=== PATIENT | male | born 1935 | race Caucasian/White ===

== ENCOUNTER → 2022-07-01 | Outpatient (CLI) | payer SELFPAY ==
[2022-07-01 09:16] LABS: BASOPHILS ABSOLUTE AUTO 0.02 K/mm3 (0.00-0.23); BASOPHILS PERCENT AUTO 0 % (0-2); EOSINOPHILS ABSOLUTE AUTO 0.04 K/mm3 (0.00-0.68); EOSINOPHILS PERCENT AUTO 1 % (0-6); Hematocrit 39.4 % (37.0-53.0); Hemoglobin 13.2 g/dL (13.5-17.5); IMMATURE GRAN ABSOLUTE AUTO 0.03 K/mm3 (0.00-0.10); IMMATURE GRAN PERCENT AUTO 1 % (0-1); LYMPHOCYTES ABSOLUTE AUTO 1.26 K/mm3 (0.84-5.20); LYMPHOCYTES PERCENT AUTO 21 % (21-46); MONOCYTES ABSOLUTE AUTO 0.56 K/mm3 (0.16-1.47); MONOCYTES PERCENT AUTO 9 % (4-13); Mean Corpuscular HGB 32.8 pg (26.0-34.0); Mean Corpuscular HGB Conc 33.5 g/dL (31.5-36.5); Mean Corpuscular Volume 98 fL (80-100); Mean Platelet Volume 11.7 fL (9.1-12.4); NEUTROPHILS ABSOLUTE AUTO 4.14 K/mm3 (1.96-9.15); NEUTROPHILS PERCENT AUTO 68 % (41-73); Platelet Count 142 K/mm3 (150-400); RDW Coefficient Variation 14.9 % (11.7-14.2); RDW Standard Deviation 54.2 fL (35.1-46.3); Red Blood Cell Count 4.02 M/mm3 (4.30-5.90); White Blood Cell Count 6.05 K/mm3 (4.00-11.30)
[2022-07-01 09:38] LABS: Bun/Creatinine Ratio 32.7 (12.0-20.0); Calcium, Blood 8.9 mg/dL (8.5-10.1); Creatinine, Blood 1.07 mg/dL (0.60-1.20); Potassium, Blood 4.9 mmol/L (3.5-5.5)
== END | disposition home or self-care (01) ==
LOC: LAB 09:04 → LAB SHORT 09:04
PROVIDERS: Physician Assistant Surgical
DX: R06.00 Dyspnea, unspecified (principal)
CPT/HCPCS: 80048; 83880; 84484; 85025

== ENCOUNTER → 2022-07-27 | Outpatient (CLI) | payer MEDICARE ==
[2022-07-27 08:54] LABS: BASOPHILS ABSOLUTE AUTO 0.03 K/mm3 (0.00-0.23); BASOPHILS PERCENT AUTO 1 % (0-2); EOSINOPHILS ABSOLUTE AUTO 0.05 K/mm3 (0.00-0.68); EOSINOPHILS PERCENT AUTO 1 % (0-6); Hematocrit 41.3 % (37.0-53.0); Hemoglobin 13.8 g/dL (13.5-17.5); IMMATURE GRAN ABSOLUTE AUTO 0.02 K/mm3 (0.00-0.10); IMMATURE GRAN PERCENT AUTO 0 % (0-1); LYMPHOCYTES ABSOLUTE AUTO 1.64 K/mm3 (0.84-5.20); LYMPHOCYTES PERCENT AUTO 27 % (21-46); MONOCYTES ABSOLUTE AUTO 0.64 K/mm3 (0.16-1.47); MONOCYTES PERCENT AUTO 11 % (4-13); Mean Corpuscular HGB 32.5 pg (26.0-34.0); Mean Corpuscular HGB Conc 33.4 g/dL (31.5-36.5); Mean Corpuscular Volume 97 fL (80-100); Mean Platelet Volume 11.6 fL (9.1-12.4); NEUTROPHILS ABSOLUTE AUTO 3.61 K/mm3 (1.96-9.15); NEUTROPHILS PERCENT AUTO 60 % (41-73); Platelet Count 145 K/mm3 (150-400); RDW Coefficient Variation 14.1 % (11.7-14.2); RDW Standard Deviation 50.5 fL (35.1-46.3); Red Blood Cell Count 4.25 M/mm3 (4.30-5.90); White Blood Cell Count 5.99 K/mm3 (4.00-11.30)
[2022-07-27 09:05] LABS: Albumin, Blood 3.9 g/dL (3.4-5.0); Albumin/Globulin Ratio 1.3 (0.8-1.8); Bilirubin, Total 1.3 mg/dL (0.1-1.0); Calcium, Blood 9.2 mg/dL (8.5-10.1); Creatinine, Blood 1.32 mg/dL (0.60-1.20); Globulin, Blood 2.9 g/dL (2.2-4.0); Potassium, Blood 4.7 mmol/L (3.5-5.5); Total Protein, Blood 6.8 g/dL (6.4-8.2)
== END | disposition home or self-care (01) ==
LOC: LAB 08:49 → LAB SHORT 08:49
PROVIDERS: Physician Assistant
DX: R06.00 Dyspnea, unspecified (principal)
CPT/HCPCS: 80053; 83880; 84484; 85025

== ENCOUNTER → 2022-09-29 | Outpatient (CLI) | payer MEDICARE ==
[~2022-09-29] MED LIST: MECL25 PO; ONDA4ODT MM
[2022-09-29 11:09] LABS: BASOPHILS ABSOLUTE AUTO 0.04 K/mm3 (0.00-0.23); BASOPHILS PERCENT AUTO 1 % (0-2); EOSINOPHILS ABSOLUTE AUTO 0.05 K/mm3 (0.00-0.68); EOSINOPHILS PERCENT AUTO 1 % (0-6); Hematocrit 44.6 % (37.0-53.0); Hemoglobin 14.7 g/dL (13.5-17.5); IMMATURE GRAN ABSOLUTE AUTO 0.03 K/mm3 (0.00-0.10); IMMATURE GRAN PERCENT AUTO 0 % (0-1); LYMPHOCYTES ABSOLUTE AUTO 1.45 K/mm3 (0.84-5.20); LYMPHOCYTES PERCENT AUTO 20 % (21-46); MONOCYTES ABSOLUTE AUTO 0.64 K/mm3 (0.16-1.47); MONOCYTES PERCENT AUTO 9 % (4-13); Mean Corpuscular HGB 32.8 pg (26.0-34.0); Mean Corpuscular Volume 100 fL (80-100); Mean Platelet Volume 12.1 fL (9.1-12.4); NEUTROPHILS ABSOLUTE AUTO 4.93 K/mm3 (1.96-9.15); NEUTROPHILS PERCENT AUTO 69 % (41-73); Platelet Count 145 K/mm3 (150-400); RDW Coefficient Variation 15.9 % (11.7-14.2); Red Blood Cell Count 4.48 M/mm3 (4.30-5.90); White Blood Cell Count 7.14 K/mm3 (4.00-11.30)
[2022-09-29 11:21] LABS: Bun/Creatinine Ratio 29.6 (12.0-20.0); Calcium, Blood 9.6 mg/dL (8.5-10.1); Creatinine, Blood 1.35 mg/dL (0.60-1.20)
== END | disposition home or self-care (01) ==
LOC: LAB SHORT 10:56 → LAB 10:56
PROVIDERS: Physician Assistant Surgical
DX: R06.00 Dyspnea, unspecified (principal); R53.83 Other fatigue
CPT/HCPCS: 80048; 83880; 84484; 85025

== ENCOUNTER 2022-10-17 15:25 | Inpatient (IN) | payer MEDICARE ==
[~2022-10-17] VITALS: Ht 182.9 cm; Wt 81.0 kg
[2022-10-17 16:15] LABS: BASOPHILS ABSOLUTE AUTO 0.02 K/mm3 (0.00-0.23); BASOPHILS PERCENT AUTO 0 % (0-2); EOSINOPHILS ABSOLUTE AUTO 0.05 K/mm3 (0.00-0.68); EOSINOPHILS PERCENT AUTO 1 % (0-6); Hematocrit 49.3 % (37.0-53.0); Hemoglobin 16.3 g/dL (13.5-17.5); IMMATURE GRAN ABSOLUTE AUTO 0.06 K/mm3 (0.00-0.10); IMMATURE GRAN PERCENT AUTO 1 % (0-1); LYMPHOCYTES ABSOLUTE AUTO 1.56 K/mm3 (0.84-5.20); LYMPHOCYTES PERCENT AUTO 15 % (21-46); MONOCYTES PERCENT AUTO 10 % (4-13); Mean Corpuscular HGB 33.4 pg (26.0-34.0); Mean Corpuscular HGB Conc 33.1 g/dL (31.5-36.5); Mean Corpuscular Volume 101 fL (80-100); Mean Platelet Volume 11.8 fL (9.1-12.4); NEUTROPHILS ABSOLUTE AUTO 7.48 K/mm3 (1.96-9.15); NEUTROPHILS PERCENT AUTO 74 % (41-73); Platelet Count 107 K/mm3 (150-400); RDW Coefficient Variation 18.4 % (11.7-14.2); Red Blood Cell Count 4.88 M/mm3 (4.30-5.90); White Blood Cell Count 10.17 K/mm3 (4.00-11.30)
[2022-10-17 16:28] LABS: Albumin, Blood 3.8 g/dL (3.4-5.0); Albumin/Globulin Ratio 1.1 (0.8-1.8); Bilirubin, Total 3.9 mg/dL (0.1-1.0); Bun/Creatinine Ratio 39.1 (12.0-20.0); Calcium, Blood 9.8 mg/dL (8.5-10.1); Creatinine, Blood 1.79 mg/dL (0.60-1.20); Globulin, Blood 3.5 g/dL (2.2-4.0); Potassium, Blood 5.7 mmol/L (3.5-5.5); Total Protein, Blood 7.3 g/dL (6.4-8.2)
[2022-10-17 17:08] LABS: PCO2 Arterial 21.2 mmHg (35-45); PO2 Arterial 154 mmHg (80-100); pH Blood Arterial 7.46 (7.35-7.45)
[2022-10-17] MEDS ORDERED: POTA10T PO (17:48)
[2022-10-17] MEDS ORDERED: SPIR25 PO (17:48)
[2022-10-17] MEDS ORDERED: FURO40 PO (17:48)
[2022-10-17] MEDS ORDERED: CENTRUM SILVER1 EAC2 PO (17:49)
[2022-10-17] MEDS ORDERED: CALCIUM CIT 311 EAC7 PO (17:49)
[2022-10-17] MEDS ORDERED: GENICIN500 M1 PO (17:50)
[2022-10-17] MEDS ORDERED: VITAMIN E180 MG PO (17:51)
[2022-10-17] MEDS ORDERED: B-100 COMPLEX100 MG PO (17:51)
[2022-10-17 20:06] LABS: Calcium, Blood 9.2 mg/dL (8.5-10.1); Creatinine, Blood 1.87 mg/dL (0.60-1.20); Potassium, Blood 4.9 mmol/L (3.5-5.5)
--- NOTE | 2022-10-17 20:39 | NUR ---
RESIDENT NOTIFIED OF CRITICAL LACTIC OF 3.3, PREVIOUS DRAW WAS 3.0. PT DID NOT RECIEVE ABX OR FLUID IN ER. ORDERED A REPEAT LACTIC, BNP, & BMP @ 0000. SHE STATED THAT SHE WILL COME UP AND ASSESS THE PT BEFORE GIVING ANY OTHER ORDERS. CHARGE NURSE NOTIFIED, PT REMAIN A&O X4, SPO2 >93% ON 2L O2 VIA NC, CALL LIGHT IN REACH, WC.
[2022-10-18 03:26] LABS: BASOPHILS ABSOLUTE AUTO 0.01 K/mm3 (0.00-0.23); BASOPHILS PERCENT AUTO 0 % (0-2); EOSINOPHILS ABSOLUTE AUTO 0.02 K/mm3 (0.00-0.68); EOSINOPHILS PERCENT AUTO 0 % (0-6); Hematocrit 40.9 % (37.0-53.0); Hemoglobin 14.1 g/dL (13.5-17.5); IMMATURE GRAN ABSOLUTE AUTO 0.05 K/mm3 (0.00-0.10); IMMATURE GRAN PERCENT AUTO 1 % (0-1); LYMPHOCYTES PERCENT AUTO 14 % (21-46); MONOCYTES ABSOLUTE AUTO 0.77 K/mm3 (0.16-1.47); MONOCYTES PERCENT AUTO 10 % (4-13); Mean Corpuscular HGB 33.6 pg (26.0-34.0); Mean Corpuscular HGB Conc 34.5 g/dL (31.5-36.5); Mean Corpuscular Volume 97 fL (80-100); Mean Platelet Volume 11.7 fL (9.1-12.4); NEUTROPHILS ABSOLUTE AUTO 6.11 K/mm3 (1.96-9.15); NEUTROPHILS PERCENT AUTO 76 % (41-73); NRBC ABSOLUTE 0.02 K/mm3 (0.00-0.02); NRBC Auto 0.2 /100 WBC (0.0-0.2); Platelet Count 93 K/mm3 (150-400); RDW Coefficient Variation 17.8 % (11.7-14.2); RDW Standard Deviation 61.2 fL (35.1-46.3); White Blood Cell Count 8.06 K/mm3 (4.00-11.30)
[2022-10-18 03:54] LABS: Albumin, Blood 2.9 g/dL (3.4-5.0); Albumin/Globulin Ratio 1.1 (0.8-1.8); Bilirubin, Total 2.8 mg/dL (0.1-1.0); Calcium, Blood 8.7 mg/dL (8.5-10.1); Creatinine, Blood 1.95 mg/dL (0.60-1.20); Globulin, Blood 2.7 g/dL (2.2-4.0); Magnesium, Blood 2.8 mg/dL (1.6-2.4); Total Protein, Blood 5.6 g/dL (6.4-8.2)
--- NOTE | 2022-10-18 05:35 | NUR ---
SHIFT SUMMARY PT REMAINS A&O X4, SBA, SPO2 100% ON 2L O2, DYSPNEA W/EXERTION & INTERMIT SOB, LUNGS REMAIN CLEAR/DIM IN BILATERAL BASES, HR PACED 60'S, VOIDING WNL, PT DID USE THE BATHROOM WITHOUT MEASURING HIS URINE A FEW TIMES, HE WAS EDUCATED ON STRICT I&O AND CALLING FOR ASSISTANCE, BP HYPOTENSIVE THIS AM, PT ASYMPTOMATIC, IS AWARE & HAS BEEN INFORMED OF PT STATUS THROUGH THE NIGHT WELL TOWER DRAGLINE OPERATOR, LACTIC THIS AM WAS 1.8. PT C/O PAIN IN THE LEFT FLANK/RIB AREA, HE WAS GIVEN PO TYLENOL & A HEATING PAD, PT STATES "IT HELPED A LITTLE". WCTM & REPORT TO ONCOMING RN, CALL LIGHT IN REACH.
--- NOTE | 2022-10-18 07:30 | NUR ---
AM ASSESSMENT: Pt dozing in bed. Wakes to verbal stimulus. Oriented x4. HR reg with faint murmur noted. Tele shows paced rhythm. LS diminished in bases. BT positive. Pulses palp. +4 pitting edema to BLE. Pt states that the swelling started about 4 days ago, but that it is slightly better today then yesterday. Pt denies dizziness or lightheadedness. BP soft. Denies needs. Call light in reach. Will monitor.
--- NOTE | 2022-10-18 18:40 | NUR ---
SHIFT SUMMARY: Pt sitting up at edge of bed. Denies CP, SOB or dizziness at this time. Pt BP has remained soft throughout the shift with SBP remaining in the low 90's. MAP's have remained in the 70's. HR has remained paced in the 60's throughout shift. Echo and abd ultrasound were completed this am. Records request sent for old echo reports to [facility] in [place]. No other changes this shift. Will report to night RN.
[2022-10-19 04:01] LABS: Albumin, Blood 2.9 g/dL (3.4-5.0); Anion Gap 8 mmol/L (6-16); Blood Urea Nitrogen 78 mg/dL (8-24); Bun/Creatinine Ratio 42.2 (12.0-20.0); CO2, Blood 24 mmol/L (21-32); Calcium, Blood 8.4 mg/dL (8.5-10.1); Chloride, Blood 101 mmol/L (98-108); Creatinine, Blood 1.85 mg/dL (0.60-1.20); Glomerular Filtration Rate 35 (60-); Glucose, Blood 111 mg/dL (70-99); Potassium, Blood 3.9 mmol/L (3.5-5.5); Sodium, Blood 133 mmol/L (136-145)
--- NOTE | 2022-10-19 05:05 | NUR ---
SHIFT SUMMARY PT A&Ox4, CALLS AND COMMUNICATES NEEDS APPROPRIATELY. VSS, BP STABLE, 100% PACED 60's, SpO2> 92% RA. PT WEARS 2L VIA NC FOR COMFORT AT TIMES. DENIES SOB/CP/PRESSURE. PT IND IN ROOM, USES URINAL APPROPRIATELY AT BEDSIDE, NO BM THIS SHIFT. NO OTHER EVENTS, WILL REPORT TO ONCOMING RN.
[2022-10-19 07:00] LABS: BASOPHILS ABSOLUTE AUTO 0.01 K/mm3 (0.00-0.23); BASOPHILS PERCENT AUTO 0 % (0-2); EOSINOPHILS ABSOLUTE AUTO 0.09 K/mm3 (0.00-0.68); EOSINOPHILS PERCENT AUTO 1 % (0-6); Hematocrit 39.7 % (37.0-53.0); Hemoglobin 13.5 g/dL (13.5-17.5); IMMATURE GRAN ABSOLUTE AUTO 0.03 K/mm3 (0.00-0.10); IMMATURE GRAN PERCENT AUTO 0 % (0-1); LYMPHOCYTES ABSOLUTE AUTO 1.24 K/mm3 (0.84-5.20); LYMPHOCYTES PERCENT AUTO 18 % (21-46); MONOCYTES ABSOLUTE AUTO 0.81 K/mm3 (0.16-1.47); MONOCYTES PERCENT AUTO 12 % (4-13); Mean Corpuscular HGB 33.3 pg (26.0-34.0); Mean Corpuscular Volume 98 fL (80-100); Mean Platelet Volume 12.6 fL (9.1-12.4); NEUTROPHILS ABSOLUTE AUTO 4.69 K/mm3 (1.96-9.15); NEUTROPHILS PERCENT AUTO 68 % (41-73); Platelet Count 82 K/mm3 (150-400); RDW Coefficient Variation 17.4 % (11.7-14.2); RDW Standard Deviation 61.3 fL (35.1-46.3); Red Blood Cell Count 4.06 M/mm3 (4.30-5.90); White Blood Cell Count 6.87 K/mm3 (4.00-11.30)
[2022-10-19 07:07] LABS: Albumin, Blood 2.9 g/dL (3.4-5.0); Albumin/Globulin Ratio 1.2 (0.8-1.8); Bilirubin, Total 2.6 mg/dL (0.1-1.0); Bun/Creatinine Ratio 43.9 (12.0-20.0); Calcium, Blood 8.5 mg/dL (8.5-10.1); Creatinine, Blood 1.8 mg/dL (0.60-1.20); Globulin, Blood 2.4 g/dL (2.2-4.0); Potassium, Blood 3.9 mmol/L (3.5-5.5); Total Protein, Blood 5.3 g/dL (6.4-8.2)
--- NOTE | 2022-10-19 10:25 | NUR ---
Pt states today that his breathing feels better. STates that he did NOT wake up frequently in a panic due to dyspnea last night, which he was doing before. Hypotension noted; pt denies any symptoms associated with that. Paced rhythm with frequent PVCs noted by telemetry monitoring. Pt also had a singe 5 beat run of V Tach this morning. Pacemaker was interrogated and report was requested faxed to PCU.
--- NOTE | 2022-10-19 17:40 | NUR ---
Sitting on side of bed, eating dinner at this time. No complaints of discomfort nor pain. No voiced needs.
--- NOTE | 2022-10-20 05:58 | NUR ---
SHIFT SUMMARY PT A&Ox4, CALLS AND COMMUNICATES NEEDS APPROPRIATELY. VSS, BP STABLE, 100% PACED 60-70's, SpO2> 92% RA. DENIES SOB/CP/PRESSURE. PT IND IN ROOM, USES URINAL APPROPRIATELY AT BEDSIDE, NO BM THIS SHIFT. NO OTHER EVENTS, WILL REPORT TO ONCOMING RN.
[2022-10-20 07:57] LABS: BASOPHILS ABSOLUTE AUTO 0.01 K/mm3 (0.00-0.23); BASOPHILS PERCENT AUTO 0 % (0-2); EOSINOPHILS ABSOLUTE AUTO 0.23 K/mm3 (0.00-0.68); EOSINOPHILS PERCENT AUTO 4 % (0-6); Hematocrit 38.2 % (37.0-53.0); Hemoglobin 13.1 g/dL (13.5-17.5); IMMATURE GRAN ABSOLUTE AUTO 0.02 K/mm3 (0.00-0.10); IMMATURE GRAN PERCENT AUTO 0 % (0-1); LYMPHOCYTES ABSOLUTE AUTO 0.92 K/mm3 (0.84-5.20); LYMPHOCYTES PERCENT AUTO 16 % (21-46); MONOCYTES ABSOLUTE AUTO 0.67 K/mm3 (0.16-1.47); MONOCYTES PERCENT AUTO 12 % (4-13); Mean Corpuscular HGB 33.4 pg (26.0-34.0); Mean Corpuscular HGB Conc 34.3 g/dL (31.5-36.5); Mean Corpuscular Volume 97 fL (80-100); Mean Platelet Volume 11.6 fL (9.1-12.4); NEUTROPHILS ABSOLUTE AUTO 3.99 K/mm3 (1.96-9.15); NEUTROPHILS PERCENT AUTO 68 % (41-73); Platelet Count 79 K/mm3 (150-400); RDW Coefficient Variation 17.3 % (11.7-14.2); RDW Standard Deviation 60.8 fL (35.1-46.3); Red Blood Cell Count 3.92 M/mm3 (4.30-5.90); White Blood Cell Count 5.84 K/mm3 (4.00-11.30)
--- NOTE | 2022-10-20 08:06 | NUR ---
Pt states that his breathing feels fine this morning. Lung sounds are clear to auscultation. Paced rhthym 61 bpm at rest. Still has some pitting edema of the legs, right greater than left. Ankles are swollen. JOLIE hose are on. Dr. Allen here to see the patient.
[2022-10-20 08:13] LABS: Bun/Creatinine Ratio 43.9 (12.0-20.0); Calcium, Blood 8.2 mg/dL (8.5-10.1); Creatinine, Blood 1.55 mg/dL (0.60-1.20); Magnesium, Blood 2.5 mg/dL (1.6-2.4); Potassium, Blood 3.2 mmol/L (3.5-5.5)
--- NOTE | 2022-10-20 14:31 | NUR ---
Pt has been eating well, urinating independently in the bathroom. He has been up in the room ambulating independently and states that he has been feeling fine. States his breathing feels much better today. Took a shower after lunch. Noted new order for medical status with telemetry.
--- NOTE | 2022-10-20 15:00 | NUR ---
RN RECEIVED REPORT FROM TIFFANIE DRUG ABUSE PROGRAM COORDINATOR ABOUT PT TRANSFERRING TO MEDICAL FLOOR. PT ARRIVED ON MEDICAL FLOOR VIA PCU WHEELCHAIR AND WALKED WITH SBA TO MEDICAL BED. PT IS ROOM AIR, INDEPENDENT IN ROOM USING URINAL. MONITORED VIA TELEMETRY AND HAS HISTORICALLY BEEN RUNNING PACED BY PACEMAKER. PER DRUG ABUSE PROGRAM COORDINATOR REPORT, THE PACEMAKER WAS INTERROGATED YESTERDAY AND IS OPERATING WNL. HE IS A&O X4. 1500ML FLUID RESTRICTION. BP HAVE BEEN HYPOTENSIVE, BUT PT DENIES ASSOCIATED SYMPTOMS AND MAP IS GREATER THAN 65. DR. WILSON PLANS TO CONITNUE WITH DIURESIS. PT IS ALSO FOLLOWED BY DR. VANCE FOR NEPHROLOGY. IV IN RIGHT HAND.
--- NOTE | 2022-10-20 16:15 | NUR ---
PT WALKED A LAP AROUND THE HALLWAY OF MEDICAL UNIT, ACCOMPANIED BY RN FOR SBA AND USING WALKER FOR SAFETY. HE DENIED SOB, WEAKNESS, OR DIZZINESS.
--- NOTE | 2022-10-20 19:39 | NUR ---
PT BP WAS 86/60 WITH MAP OF 70. HOSPITALIST NOTIFIED. WCTM.
--- NOTE | 2022-10-20 19:41 | NUR ---
PT WITH CALL LIGHT WITHIN REACH. DENIES PAIN OR SOB. HYPOTENSIVE, DENIES ASSOCIATIVE SYMPTOMS. HAD A MEDIUM BOWEL MOVEMENT. PLEASANT AND ALERT. RN GAVE REPORT TO ONCOMING RN.
--- NOTE | 2022-10-21 01:33 | NUR ---
NOTIFIED BY [facility] MULLING MACHINE OPERATOR THAT PT HAS HAD RECURRENT EPISODES OF ST ELEVATION EVERY FEW HOURS FOR 3 BOX RUNS THAT STARTED AROUND 1800 ON 10/20/22.
--- NOTE | 2022-10-21 02:37 | NUR ---
NOTIFIED BY U DIGITAL ADVERTISING ANALYST PT HAD ST ELEVATION BRIEFLY.
[2022-10-21 06:04] LABS: BASOPHILS ABSOLUTE AUTO 0.02 K/mm3 (0.00-0.23); BASOPHILS PERCENT AUTO 0 % (0-2); EOSINOPHILS ABSOLUTE AUTO 0.12 K/mm3 (0.00-0.68); EOSINOPHILS PERCENT AUTO 2 % (0-6); Hematocrit 42.2 % (37.0-53.0); Hemoglobin 14.2 g/dL (13.5-17.5); IMMATURE GRAN ABSOLUTE AUTO 0.04 K/mm3 (0.00-0.10); IMMATURE GRAN PERCENT AUTO 1 % (0-1); LYMPHOCYTES ABSOLUTE AUTO 1.24 K/mm3 (0.84-5.20); LYMPHOCYTES PERCENT AUTO 21 % (21-46); MONOCYTES ABSOLUTE AUTO 0.66 K/mm3 (0.16-1.47); MONOCYTES PERCENT AUTO 11 % (4-13); Mean Corpuscular HGB 33.3 pg (26.0-34.0); Mean Corpuscular HGB Conc 33.6 g/dL (31.5-36.5); Mean Corpuscular Volume 99 fL (80-100); Mean Platelet Volume 11.2 fL (9.1-12.4); NEUTROPHILS ABSOLUTE AUTO 3.77 K/mm3 (1.96-9.15); NEUTROPHILS PERCENT AUTO 64 % (41-73); Platelet Count 91 K/mm3 (150-400); RDW Coefficient Variation 17.5 % (11.7-14.2); RDW Standard Deviation 62.2 fL (35.1-46.3); Red Blood Cell Count 4.27 M/mm3 (4.30-5.90); White Blood Cell Count 5.85 K/mm3 (4.00-11.30)
[2022-10-21 06:17] LABS: Albumin, Blood 2.9 g/dL (3.4-5.0); Bilirubin, Total 2.6 mg/dL (0.1-1.0); Calcium, Blood 8.5 mg/dL (8.5-10.1); Creatinine, Blood 1.49 mg/dL (0.60-1.20); Globulin, Blood 2.9 g/dL (2.2-4.0); Potassium, Blood 3.9 mmol/L (3.5-5.5); Total Protein, Blood 5.8 g/dL (6.4-8.2)
--- NOTE | 2022-10-21 07:50 | NUR ---
SHIFT SUMMARY NOC A/O X 4. PT ON TELE PACED @ 78 BPM. PT BP WAS SOFT DURING SHIFT WITH CHECKS Q2H. AM VS PT HAD LOW BP AND BOLUS OF NS 250 ML X 1 WAS ADMINISTERED AND PT BP INCREASED. PT HAD TWO BRIEF EPISODES OF ST ELEVATION DURING SHIFT. PT WAS PLEASANT AND COOPERATIVE TO CARE. WCTM. PT IS CURRENTLY RESTING WITH BED IN LOWEST POSITION AND CALL LIGHT WITHIN REACH.
--- NOTE | 2022-10-21 13:15 | NUR ---
DEVICE CHECK COMPLETED PER HOSPITALIST ORDER - BIVPPM APPEARS WORKING NORMALLY, ROUTED IN OPTIMA/PACEART TO DR DODGE
[2022-10-21] MEDS ORDERED: VIT B COMPLEX PO (16:10)
--- NOTE | 2022-10-21 16:45 | NUR ---
PT EDUCATED ON DISCHARGE MEDICATION, FOLLOW UP WITH PCP, AND CHF MANAGEMENT. PT IV REMOVED BU JAYCEE RAMOS AND CHARTED. PT DRESSED AND PACK PERSONAL BELONGINGS INDEPENDANTLY. PT ESCORTED VIA TO [facility] FOR TO TRANSPORT HOME BY [facility].
[2022-10-21 17:10] LABS: A/G RATIO 1.2 (0.7-1.7); ALBUMIN 2.9 g/dL (2.9-4.4); ALPHA-1-GLOBULIN 0.2 g/dL (0.0-0.4); ALPHA-2-GLOBULIN 0.5 g/dL (0.4-1.0); BETA GLOBULIN 0.8 g/dL (0.7-1.3); GLOBULIN, TOTAL 2.5 g/dL (2.2-3.9); M-SPIKE Not Observed g/dL (Not Observed); PROTEIN, TOTAL, SERUM 5.4 g/dL (6.0-8.5)
[2022-10-24 10:08] LABS: M-SPIKE, % Not Observed % (Not Observed); PROTEIN,TOTAL,URINE 5.6 mg/dL (Not Estab.)
== END 2022-10-21 16:44 | disposition home health service (06) | DRG 291 ==
LOC: ER 15:25 → PCU 16:57 → MEDS 10-20 15:16
PROVIDERS: Internal Medicine Nephrology; Student in an Organized Health Care Education/Training Program; ADMIT Internal Medicine
DX: I13.0 Hypertensive heart and chronic kidney disease with heart failure and stage 1 through stage 4 chronic kidney disease, or unspecified chronic kidney disease (principal); I50.23 Acute on chronic systolic (congestive) heart failure; N17.9 Acute kidney failure, unspecified; E87.20 Acidosis, unspecified; E87.1 Hypo-osmolality and hyponatremia; E87.3 Alkalosis; N18.9 Chronic kidney disease, unspecified; Z66 Do not resuscitate; E80.6 Other disorders of bilirubin metabolism; E87.5 Hyperkalemia; I48.91 Unspecified atrial fibrillation; E87.6 Hypokalemia; R16.0 Hepatomegaly, not elsewhere classified; K76.1 Chronic passive congestion of liver; Z95.0 Presence of cardiac pacemaker; Z79.899 Other long term (current) drug therapy; Z79.01 Long term (current) use of anticoagulants; Z98.890 Other specified postprocedural states
CPT/HCPCS: 36415; 36600; 71045; 76700; 80048; 80053; 80069; 82247; 82248; 82570; 82803; 83605; 83735; 83880; 84156; 84165; 84166; 84300; 84484; 85025; 93005; 93010; 93281; 96374; 96375; 99285-25; A9270; C8929; J0610; J1644; J1940; J7050; Q9957

== ENCOUNTER 2022-11-01 12:51 | Inpatient (IN) | payer MEDICARE ==
[~2022-11-01] VITALS: Ht 182.9 cm; Wt 83.2 kg
[~2022-11-01 12:51] MED LIST changes: +B-100 COMPLEX100 MG PO; +CALCIUM CIT 311 EAC7 PO; +CENTRUM SILVER1 EAC2 PO; +FURO40 PO; +GENICIN500 M1 PO; +POTA10T PO; +SPIR25 PO; +VIT B COMPLEX PO; +VITAMIN E180 MG PO
[2022-11-01] MEDS ORDERED: BUME2 PO (13:21)
[2022-11-01 13:25] LABS: Base Excess Venous -7.8 mmol/L; Bicarbonate Venous 19.6 mmol/L (24.0-30.0); PCO2 Venous 25.2 mmHg (38-42); pH Blood Venous 7.43 (7.34-7.37)
[2022-11-01 13:26] LABS: BASOPHILS ABSOLUTE AUTO 0.04 K/mm3 (0.00-0.23); BASOPHILS PERCENT AUTO 0 % (0-2); EOSINOPHILS ABSOLUTE AUTO 0.01 K/mm3 (0.00-0.68); EOSINOPHILS PERCENT AUTO 0 % (0-6); Hematocrit 47.5 % (37.0-53.0); Hemoglobin 16.3 g/dL (13.5-17.5); IMMATURE GRAN ABSOLUTE AUTO 0.09 K/mm3 (0.00-0.10); IMMATURE GRAN PERCENT AUTO 1 % (0-1); LYMPHOCYTES ABSOLUTE AUTO 0.76 K/mm3 (0.84-5.20); LYMPHOCYTES PERCENT AUTO 5 % (21-46); MONOCYTES ABSOLUTE AUTO 1.07 K/mm3 (0.16-1.47); MONOCYTES PERCENT AUTO 7 % (4-13); Mean Corpuscular HGB 33.3 pg (26.0-34.0); Mean Corpuscular HGB Conc 34.3 g/dL (31.5-36.5); Mean Corpuscular Volume 97 fL (80-100); Mean Platelet Volume 12.6 fL (9.1-12.4); NEUTROPHILS ABSOLUTE AUTO 12.75 K/mm3 (1.96-9.15); NEUTROPHILS PERCENT AUTO 87 % (41-73); Platelet Count 118 K/mm3 (150-400); RDW Coefficient Variation 17.5 % (11.7-14.2); RDW Standard Deviation 60.3 fL (35.1-46.3); White Blood Cell Count 14.72 K/mm3 (4.00-11.30)
[2022-11-01 13:40] LABS: Albumin, Blood 2.9 g/dL (3.4-5.0); Albumin/Globulin Ratio 0.7 (0.8-1.8); Bun/Creatinine Ratio 41.5 (12.0-20.0); Calcium, Blood 9.2 mg/dL (8.5-10.1); Creatinine, Blood 1.71 mg/dL (0.60-1.20); Globulin, Blood 4.1 g/dL (2.2-4.0); Potassium, Blood 5.3 mmol/L (3.5-5.5)
[2022-11-01 16:02] LABS: Base Excess Venous -9.4 mmol/L; Bicarbonate Venous 18.5 mmol/L (24.0-30.0); PCO2 Venous 24.9 mmHg (38-42)
--- NOTE | 2022-11-01 19:27 | NUR ---
PCU ADMIT / END OF SHIFT PT BROUGHT TO PCU-12 BY FABIOLA FROM ER @ APPROX 1700. PT A&O X4, SLID OVER FROM MANANRON TO PCU BED D/T WORK OF BREATHING. VSS. SPO2 > 92% ON AIRVO: 50L FIO2 40%. RR 30s. MONITOR SHOWING PACED, HR 60s. BLE W/ PITTING EDEMA. PT SETTLED IN RM. REPORT GIVEN TO ACCEPTING SURGICAL APPLIANCE FITTER RN.
--- NOTE | 2022-11-02 05:39 | NUR ---
SHIFT SUMMARY ASSUMED CARE OF PT AT 1900. PT IS A/OX3 BUT FORGETFUL. PT CANNOT USE CALL LIGHT PROPERLY, EVEN WHEN REMINDED. HEART SOUNDS REGULAR. LUNG SOUNDS CLEAR. PT REMAINED ON AIRVO 40L/45% WITH SATS AT 100% ON THE EAR PROBE. PT WOULD TAKE OUT AIRVO AND SATURATIONS REMAIN ABOVE 95%. RT NOTIFIED BUT DID NOT THINK PT SHOULD BE TITRATED YET. PT WAS INCONTINENT OF URINE UNTIL THIS AM WHEN HE WOULD USE CALL LIGHT BUT WOULD WET HIS BREIF BEFORE DITCHING MACHINE OPERATING ENGINEER COULD GET TO ROOM. PT HAS 4+ PITTING EDEMA. NOT HAD NO COMPLAINTS OTHER THAN WANTING WATER.
[2022-11-02 05:52] LABS: BASOPHILS ABSOLUTE AUTO 0.03 K/mm3 (0.00-0.23); BASOPHILS PERCENT AUTO 0 % (0-2); EOSINOPHILS ABSOLUTE AUTO 0.01 K/mm3 (0.00-0.68); EOSINOPHILS PERCENT AUTO 0 % (0-6); Hematocrit 37.7 % (37.0-53.0); Hemoglobin 13.1 g/dL (13.5-17.5); IMMATURE GRAN PERCENT AUTO 1 % (0-1); LYMPHOCYTES ABSOLUTE AUTO 0.54 K/mm3 (0.84-5.20); LYMPHOCYTES PERCENT AUTO 4 % (21-46); MONOCYTES ABSOLUTE AUTO 0.61 K/mm3 (0.16-1.47); MONOCYTES PERCENT AUTO 5 % (4-13); Mean Corpuscular HGB 33.3 pg (26.0-34.0); Mean Corpuscular HGB Conc 34.7 g/dL (31.5-36.5); Mean Corpuscular Volume 96 fL (80-100); Mean Platelet Volume 12.1 fL (9.1-12.4); NEUTROPHILS ABSOLUTE AUTO 10.98 K/mm3 (1.96-9.15); NEUTROPHILS PERCENT AUTO 90 % (41-73); NRBC ABSOLUTE 0.02 K/mm3 (0.00-0.02); NRBC Auto 0.2 /100 WBC (0.0-0.2); Platelet Count 82 K/mm3 (150-400); RDW Coefficient Variation 16.8 % (11.7-14.2); RDW Standard Deviation 58.7 fL (35.1-46.3); Red Blood Cell Count 3.93 M/mm3 (4.30-5.90); White Blood Cell Count 12.27 K/mm3 (4.00-11.30)
[2022-11-02 06:57] LABS: Albumin, Blood 2.2 g/dL (3.4-5.0); Albumin/Globulin Ratio 0.8 (0.8-1.8); Bilirubin, Total 4.3 mg/dL (0.1-1.0); Calcium, Blood 8.7 mg/dL (8.5-10.1); Creatinine, Blood 2.05 mg/dL (0.60-1.20); Globulin, Blood 2.9 g/dL (2.2-4.0); Potassium, Blood 5.1 mmol/L (3.5-5.5); Total Protein, Blood 5.1 g/dL (6.4-8.2)
[2022-11-02 16:05] LABS: Base Excess Venous -0.8 mmol/L; Bicarbonate Venous 23.3 mmol/L (24.0-30.0); PCO2 Venous 34.3 mmHg (38-42); pH Blood Venous 7.44 (7.34-7.37)
[2022-11-02 17:42] LABS: Source, Urine Foley catheter
[2022-11-02 17:57] LABS: Appearance, Urine Clear (Clear); Bilirubin, Urine Neg (Neg); Blood, Urine 4+ (Neg); Color, Urine Yellow (P-Yellow); Glucose Qualitative, Urine Neg (Neg); Ketones, Urine Neg (Neg); Leukocyte Esterase, Urine Neg (Neg); Nitrite, Urine Neg (Neg); Protein, Urine 1+ (Neg); Specific Gravity, Urine 1.015 (1.003-1.022); Urobilinogen, Urine NORM (Normal)
[2022-11-02 18:13] LABS: Bacteria Few /hpf; Squamous Epithelial Cells Few /hpf (Few); White Blood Cells, Urine 0-2 /hpf (0-5)
--- NOTE | 2022-11-02 18:16 | NUR ---
END OF SHIFT NOTE PT A&O X4. BEAVER. BP SOFT, OTHERWISE VSS. MONITOR SHOWING PACED RHYTHM, HR 60s. SPO2 > 92% ON AIRVO: 40L, FIO2 45%, TITRATED TO 4L HUMIDIFIED NC THIS SHIFT W/ PT TOLERATING WELL. PT W/ PITTING EDEMA BLE. BLE ELEVATED IN BED. PT INCONTINENT. HAMM CATH PLACED PER MD ORDER FOR ACCURATE I/O.
[2022-11-03 04:16] LABS: Hematocrit 36.4 % (37.0-53.0); Hemoglobin 12.7 g/dL (13.5-17.5)
[2022-11-03 04:44] LABS: Magnesium, Blood 2.6 mg/dL (1.6-2.4); Uric Acid, Blood 13.5 mg/dL (3.5-7.2)
[2022-11-03 04:47] LABS: Albumin, Blood 1.9 g/dL (3.4-5.0); Anion Gap 9 mmol/L (6-16); Blood Urea Nitrogen 83 mg/dL (8-24); Bun/Creatinine Ratio 45.9 (12.0-20.0); CO2, Blood 23 mmol/L (21-32); Calcium, Blood 8.2 mg/dL (8.5-10.1); Chloride, Blood 100 mmol/L (98-108); Creatinine, Blood 1.81 mg/dL (0.60-1.20); Glomerular Filtration Rate 36 (60-); Glucose, Blood 106 mg/dL (70-99); Phosphorus, Blood 4.3 mg/dL (2.5-4.9); Potassium, Blood 3.6 mmol/L (3.5-5.5); Sodium, Blood 132 mmol/L (136-145)
--- NOTE | 2022-11-03 05:28 | NUR ---
SHIFT SUMMARY ASSUMED CARE OF PT AT 1900. PT IS A//O BUT FORGETFUL. PT DID NOT REMEBER ANY OF THE EVENTS OF THE DAY OR THAT HIS FAMILY WAS VISITING. PT HAD A RESTLESS NIGHT, TOSSING AND TURNING. PT BP WAS DECREASED T/O THE NIGHT WITH MAS LOW 50S. SOME PRESSURES TAKEN ON PT SIDE DUE TO PT TRYING TO GET COMFORTABLE. HEART SOUNDS REGULAR. PT PACED T/O THE NIGHT. LUNG SOUND CLEAR. PT REMAINED ON RA T/O THE NIGHT. PT HAMM DRAINING ESTEPHANIA URINE. PT HAS 4+ PITTING EDEMA IN LEGS. PT HAD NO COMPLAINTS OTHER THAN NOT BEING ABLE TO SLEEP.
[2022-11-03 05:50] LABS: BASOPHILS ABSOLUTE AUTO 0.02 K/mm3 (0.00-0.23); BASOPHILS PERCENT AUTO 0 % (0-2); EOSINOPHILS ABSOLUTE AUTO 0.01 K/mm3 (0.00-0.68); EOSINOPHILS PERCENT AUTO 0 % (0-6); Hemoglobin 12.8 g/dL (13.5-17.5); IMMATURE GRAN ABSOLUTE AUTO 0.05 K/mm3 (0.00-0.10); IMMATURE GRAN PERCENT AUTO 1 % (0-1); LYMPHOCYTES ABSOLUTE AUTO 0.33 K/mm3 (0.84-5.20); LYMPHOCYTES PERCENT AUTO 3 % (21-46); MONOCYTES ABSOLUTE AUTO 0.36 K/mm3 (0.16-1.47); MONOCYTES PERCENT AUTO 4 % (4-13); Mean Corpuscular HGB 33.6 pg (26.0-34.0); Mean Corpuscular HGB Conc 35.6 g/dL (31.5-36.5); Mean Corpuscular Volume 95 fL (80-100); Mean Platelet Volume 11.9 fL (9.1-12.4); NEUTROPHILS ABSOLUTE AUTO 9.23 K/mm3 (1.96-9.15); NEUTROPHILS PERCENT AUTO 92 % (41-73); Platelet Count 78 K/mm3 (150-400); RDW Coefficient Variation 16.4 % (11.7-14.2); RDW Standard Deviation 56.5 fL (35.1-46.3); Red Blood Cell Count 3.81 M/mm3 (4.30-5.90)
[2022-11-03 06:17] LABS: Albumin/Globulin Ratio 0.7 (0.8-1.8); Bilirubin, Total 3.9 mg/dL (0.1-1.0); Bun/Creatinine Ratio 44.6 (12.0-20.0); Calcium, Blood 8.1 mg/dL (8.5-10.1); Creatinine, Blood 1.86 mg/dL (0.60-1.20); Globulin, Blood 2.7 g/dL (2.2-4.0); Potassium, Blood 3.6 mmol/L (3.5-5.5); Total Protein, Blood 4.7 g/dL (6.4-8.2)
--- NOTE | 2022-11-03 18:15 | NUR ---
END OF SHIFT NOTE PT A&O X4 W/ FORGETFULNESS, SLEEPING RESTLESSLY INTERMITTENTLY T/O SHIFT. BP SOFT, OTHERWISE VSS. SPO2 > 92% ON RA. MONITOR SHOWING PACED RHYTHM, HR 60s. PT AMBULATING TO BATHROOM W/ 1 PERSON ASSIST. HAMM CATH PATENT & DRAINING DARK YELLOW URINE. NO EVENTS THIS SHIFT.
[2022-11-04 03:12] LABS: Protein, Urine Quantitative 35.8 mg/dL (0.0-11.9)
[2022-11-04 04:05] LABS: BASOPHILS ABSOLUTE AUTO 0.02 K/mm3 (0.00-0.23); BASOPHILS PERCENT AUTO 0 % (0-2); EOSINOPHILS PERCENT AUTO 0 % (0-6); Hematocrit 35.2 % (37.0-53.0); Hemoglobin 12.5 g/dL (13.5-17.5); IMMATURE GRAN ABSOLUTE AUTO 0.07 K/mm3 (0.00-0.10); IMMATURE GRAN PERCENT AUTO 1 % (0-1); LYMPHOCYTES ABSOLUTE AUTO 0.63 K/mm3 (0.84-5.20); LYMPHOCYTES PERCENT AUTO 7 % (21-46); MONOCYTES ABSOLUTE AUTO 0.42 K/mm3 (0.16-1.47); MONOCYTES PERCENT AUTO 5 % (4-13); Mean Corpuscular HGB 32.9 pg (26.0-34.0); Mean Corpuscular HGB Conc 35.5 g/dL (31.5-36.5); Mean Corpuscular Volume 93 fL (80-100); Mean Platelet Volume 12.3 fL (9.1-12.4); NEUTROPHILS ABSOLUTE AUTO 8.16 K/mm3 (1.96-9.15); NEUTROPHILS PERCENT AUTO 88 % (41-73); Platelet Count 68 K/mm3 (150-400); RDW Coefficient Variation 16.4 % (11.7-14.2); RDW Standard Deviation 55.2 fL (35.1-46.3)
[2022-11-04 05:03] LABS: Albumin, Blood 1.9 g/dL (3.4-5.0); Albumin/Globulin Ratio 0.7 (0.8-1.8); Bilirubin, Total 3.3 mg/dL (0.1-1.0); Creatinine, Blood 1.7 mg/dL (0.60-1.20); Globulin, Blood 2.8 g/dL (2.2-4.0); Potassium, Blood 3.5 mmol/L (3.5-5.5); Total Protein, Blood 4.7 g/dL (6.4-8.2)
--- NOTE | 2022-11-04 06:10 | NUR ---
SHIFT SUMMARY PT A&Ox4, CAN BE FORGETFUL AT TIMES, BED ALARM ON. PT DID CALL APPROPRIATELY THROUGHOUT SHIFT, NOT SETTING OFF BED ALARM. BP SOFT, PT ASYMPTOMATIC, PHYSICIAN NOTIFIED, ORDERS PLACED. 100% PACED 60's. DENIES CP/PRESSURE. SpO2> 92% RA, REPORTS OCCASTIONAL SOB. HAMM CATHETER IN PLACE, PATENT, DRAINING TO GRAVITY. PT SBA TO BATHROOM WITH FWW. NO OTHER EVENTS, WILL REPORT TO ONCOMING RN.
--- NOTE | 2022-11-04 07:53 | NUR ---
Pt is alert, oriented to person, place and date. He is sitting up in the chair, eating breakfast. Blood pressure is low, but he denies dizzyness/lightheadedness. States he is "a little disoriented" when he first stands up "from lying in bed so long". 100% paced by telemetry monitoring, 60 bpm. Respirations are even, unlabored without use of accessory muscles at 20 /minute on room air.
--- NOTE | 2022-11-04 07:55 | NUR ---
Dr. Soni here to see the patient.
--- NOTE | 2022-11-04 10:52 | NUR ---
Minimal assistance needed to stand and use the urinal at the bedside.
--- NOTE | 2022-11-04 13:32 | NUR ---
Pt has been ambulatory to the bathroom, and also standing at side of bed to void in urinal. Sat up in chair for breakfast. He otherwise prefers to stay in bed, most often napping. Respirations are unlabored on room air. Given MIdodrine just now as scheduled, noted systolic blood pressure is 95 at the time. He is often asking for ice chips and more drinks. ATtempting to reinforce the fluid restriction recommendation, and teaching regarding heart failure. I see that he has a new standing scale in its box in the room. He wasn't aware that it was here.
--- NOTE | 2022-11-04 17:42 | NUR ---
pt c/o constipation. Has been unable to have bm after trying 3 times throughout the day, walking to the bathroom. OOB to chair for meals today as well.
--- NOTE | 2022-11-04 17:46 | NUR ---
Call to Dr. Coley to request bowel care. Voice mail was left.
--- NOTE | 2022-11-04 18:38 | NUR ---
Coreg held due to systolic blood pressure 87 mmHG, despite midodrine being given an hour prior.
[2022-11-05 03:48] LABS: BASOPHILS ABSOLUTE AUTO 0.02 K/mm3 (0.00-0.23); BASOPHILS PERCENT AUTO 0 % (0-2); EOSINOPHILS ABSOLUTE AUTO 0.02 K/mm3 (0.00-0.68); EOSINOPHILS PERCENT AUTO 0 % (0-6); Hematocrit 37.4 % (37.0-53.0); Hemoglobin 13.1 g/dL (13.5-17.5); IMMATURE GRAN ABSOLUTE AUTO 0.06 K/mm3 (0.00-0.10); IMMATURE GRAN PERCENT AUTO 1 % (0-1); LYMPHOCYTES ABSOLUTE AUTO 0.73 K/mm3 (0.84-5.20); LYMPHOCYTES PERCENT AUTO 8 % (21-46); MONOCYTES ABSOLUTE AUTO 0.44 K/mm3 (0.16-1.47); MONOCYTES PERCENT AUTO 5 % (4-13); Mean Corpuscular HGB 32.5 pg (26.0-34.0); Mean Corpuscular Volume 93 fL (80-100); Mean Platelet Volume 12.9 fL (9.1-12.4); NEUTROPHILS ABSOLUTE AUTO 7.45 K/mm3 (1.96-9.15); NEUTROPHILS PERCENT AUTO 86 % (41-73); Platelet Count 66 K/mm3 (150-400); RDW Coefficient Variation 16.3 % (11.7-14.2); RDW Standard Deviation 54.4 fL (35.1-46.3); Red Blood Cell Count 4.03 M/mm3 (4.30-5.90); White Blood Cell Count 8.72 K/mm3 (4.00-11.30)
[2022-11-05 04:33] LABS: Magnesium, Blood 2.6 mg/dL (1.6-2.4)
[2022-11-05 04:34] LABS: Albumin, Blood 1.9 g/dL (3.4-5.0); Anion Gap 8 mmol/L (6-16); Blood Urea Nitrogen 85 mg/dL (8-24); Bun/Creatinine Ratio 54.8 (12.0-20.0); CO2, Blood 24 mmol/L (21-32); Calcium, Blood 8.1 mg/dL (8.5-10.1); Chloride, Blood 100 mmol/L (98-108); Creatinine, Blood 1.55 mg/dL (0.60-1.20); Glomerular Filtration Rate 44 (60-); Glucose, Blood 121 mg/dL (70-99); Phosphorus, Blood 3.2 mg/dL (2.5-4.9); Potassium, Blood 3.4 mmol/L (3.5-5.5); Sodium, Blood 132 mmol/L (136-145)
--- NOTE | 2022-11-05 05:11 | NUR ---
SHIFT SUMMARY PT A&Ox4, CAN BE FORGETFUL AT TIMES, BED ALARM ON. PT DID CALL APPROPRIATELY THROUGHOUT SHIFT, NOT SETTING OFF BED ALARM. BP SOFT, PT ASYMPTOMATIC. 100% PACED 60's. DENIES CP/PRESSURE. SpO2> 92% RA, REPORTS OCCASTIONAL SOB. PT INCONTINENT AT TIMES, USED URINAL AT BEDSIDE WHEN CONTINENT. NO BM THIS SHIFT. PT SBA TO BATHROOM WITH FWW. NO OTHER EVENTS, WILL REPORT TO ONCOMING RN.
--- NOTE | 2022-11-05 07:35 | NUR ---
ASSUMED CARE: PT RESTING QUIETLY IN BED, ON RA. PACED AT 60 ON TELE. NO ACUTE NEEDS OR CONCERNS AT THIS TIME.
--- NOTE | 2022-11-05 13:08 | NUR ---
ACOUSTIC ENGINEER ASKED NURSE TO SPEAK WITH PT BECAUSE PT HAD SEEMED DEPRESSION AND TOLD HER HE WAS "DONE." NURSE WENT TO BEDSIDE TO CLARIFY AND PATIENT STATED HE WAS"DONE WITH LIFE." ASKED PT IF HE WOULD FEEL THE SAME AT HOME AND HE SAID YES. ASKED HIM IF HE WANTED TO HARM HIMSELF TO END HIS LIFE AND HE SAID NO, THAT HE WAS JUST TIRED. CALL TO DR WILSON WHO WISHES FOR PALLIATIVE CARE. MESSAGE LEFT WITH PALLIATIVE CARE NURSE TO DISCUSS PT FURTHER. DR WILSON STATES HE WILL DISCUSS FURTHER WITH PT DURING FURTHER ROUNDS. PT STATED HE HAS STARTED DISCUSSING THIS TOPIC WITH HIS WELL
--- NOTE | 2022-11-05 14:13 | NUR ---
Called to see pt he was making statements about being done with life and wanting to go home. Met with pt he is very fatigued and states he does not feel well. Reivew of symptoms he states he feels awful and tired all the time. asked if he feels laored or tired form breathing. States no to shorntess of breath but states he has to work at it. He is visibly labored in his ventilation. He denies heachache or ringing in his ears. He denies difficulty swallowing. he states his is fatigued and has no appetite. He is belching frequently during conversation. He denies any falls but states he barely walks anymore. Review of sleep. He states he does not sleep he just doses off and then wakes up because of his breathing. He feels he is getting worse. We discussed his symptoms and needs.Advised I will try to come up with a plan to help him with his discomfort. He stated he feels they can no longer fix his problems. Discussed coming up with a plan to make him comfortable and reduce his suffering. Review of diagnoistics, progressnotes and assessment looks to be progressing towards end of life and worsening cardiac and hepatic failure. And failure to thrive. Notified physician of assessment requested pain and GI medications. Called and left a message. His kps score is 40 to 30%. reccomend hospice care. Pt states he was in the [employer] for six years. will follow up with care mangers. He is to sick to go home without support. Will see if his children are involved.
--- NOTE | 2022-11-05 15:10 | NUR ---
PT WAS TRANSFERRED TO MEDICAL FLOOR VIA BED BY HOSPITAL STAFF. FAMILY AWARE OF TRANSFER. FAMILY HAD QUESTIONS REGARDING DISCHARGE PLAN. INFORMED FAMILY THAT ORDERED PT/OT EVALUATIONS TO DETERMINE SAFE DISCHARGE PLANNING. FAMILY FEELS PT IS TOO WEAK FOR DISCHARGE BUT ALSO CONCERNED ABOUT PT TALKING ABOUT BEING READY TO . INFORMED THEM ABOUT PALLIATIVE CARE ORDER AND THE POTENTIAL FOR SOMEONE TO TALK TO THEM ABOUT HOSPICE. NO FURTHER NEEDS AT TRANSFER
--- NOTE | 2022-11-05 17:52 | NUR ---
PT UP TO ROOM FROM PCU12. PT ALERT AND ORIENTED, LETHARGIC. PT ON TELE, PACING. PT REMAINS ON 1L FLUID RESTRICTION. PT ON RA. PT WITH DECREASED MOBILITY, REFUSED TO WORK WITH PT FROM REPORT. PALLIATIVE CARE CONSULTED, SAW PT. BP REMAINS SOFT, 90'S SBP, CONTINUE MIDODRINE. FAMILY AT BEDSIDE. WILL CONTINUE TO MONITOR. CALL LIGHT WITHIN REACH.
--- NOTE | 2022-11-05 19:40 | NUR ---
ASSISTED NAE TO BED AFTER AMBULATING HIM TO COMMODE. HE ATTEMPTED X2 TO HAVE A BM, BUT WAS UNABLE TO PASS THE LARGE FIRM BM IN RECTAL VAULT THAT WAS PALPATED WHILE COMPLETING PERICARE. ONLY A SMEAR WAS NOTED ON PAPER. PULL UP STYLE BRIEF PLACED ON NAE WELL SLIP RESISTANT XXL SOCKS. NAE WAS MADE COMFORTABLE AND CALL REESE PLACED IN HAND. BED LOW AND LOCKED, BED ALARM ON AND ACTIVE. STATES THAT HE IS TIRED, BUT HAS TOLERATED ACITIVITY AT THIS TIME. DENIES FURTHER NEEDS OR WANTS AT THIS TIME. WILL CONTINUE TO MONITOR AND ADDRESS NEEDS THEY ARISE.
[2022-11-06 04:56] LABS: BASOPHILS ABSOLUTE AUTO 0.02 K/mm3 (0.00-0.23); BASOPHILS PERCENT AUTO 0 % (0-2); EOSINOPHILS ABSOLUTE AUTO 0.02 K/mm3 (0.00-0.68); EOSINOPHILS PERCENT AUTO 0 % (0-6); Hematocrit 39.8 % (37.0-53.0); Hemoglobin 14.1 g/dL (13.5-17.5); IMMATURE GRAN ABSOLUTE AUTO 0.07 K/mm3 (0.00-0.10); IMMATURE GRAN PERCENT AUTO 1 % (0-1); LYMPHOCYTES ABSOLUTE AUTO 0.93 K/mm3 (0.84-5.20); LYMPHOCYTES PERCENT AUTO 10 % (21-46); MONOCYTES ABSOLUTE AUTO 0.59 K/mm3 (0.16-1.47); MONOCYTES PERCENT AUTO 7 % (4-13); Mean Corpuscular HGB 32.9 pg (26.0-34.0); Mean Corpuscular HGB Conc 35.4 g/dL (31.5-36.5); Mean Corpuscular Volume 93 fL (80-100); Mean Platelet Volume 12.9 fL (9.1-12.4); NEUTROPHILS ABSOLUTE AUTO 7.35 K/mm3 (1.96-9.15); NEUTROPHILS PERCENT AUTO 82 % (41-73); Platelet Count 75 K/mm3 (150-400); RDW Coefficient Variation 16.4 % (11.7-14.2); RDW Standard Deviation 54.8 fL (35.1-46.3); Red Blood Cell Count 4.29 M/mm3 (4.30-5.90); White Blood Cell Count 8.98 K/mm3 (4.00-11.30)
[2022-11-06 05:17] LABS: Magnesium, Blood 2.6 mg/dL (1.6-2.4)
[2022-11-06 05:18] LABS: Albumin, Blood 1.9 g/dL (3.4-5.0); Albumin/Globulin Ratio 0.6 (0.8-1.8); Bilirubin, Total 2.7 mg/dL (0.1-1.0); Bun/Creatinine Ratio 59.5 (12.0-20.0); Calcium, Blood 8.4 mg/dL (8.5-10.1); Creatinine, Blood 1.48 mg/dL (0.60-1.20); Globulin, Blood 3.3 g/dL (2.2-4.0); Potassium, Blood 3.7 mmol/L (3.5-5.5); Total Protein, Blood 5.2 g/dL (6.4-8.2)
--- NOTE | 2022-11-06 05:49 | NUR ---
NAE IS LYING ON HIS RIGHT SIDE WITH EYES CLOSED. HE HAS RESTED OFF AND ON. HE HAS GOTTEN OUT OF BED AND ATTEMPTED TO HAVE A BM MULTIPLE TIMES. HE WAS FINALLY ABLE TO PASS A HARD FORMED MEDIUM DARK BROWN STOOL, TOLERATED WELL. HE HAS BEEN CALM AND COOPERATIVE WITH CARE. EACH TIME HE HAS ATTEMPTED TO USE THE COMMODE HE HAS BEEN ABLE TO USE THE CALL REESE FOR ASSITANCE WHEN PROMPTED. CORRENTLY DENIES PAIN, DISCOMFORT, OR FURTHER NEEDS. SAFETY MEASURES IN PLACE. WILL GIVE HAND OFF TO ONCOMING SHIFT USING SBAR DURING BEDSIDE REPORT. WILL CONTINUE TO MONITOR AND ADDRESS NEEDS THEY ARISE.
--- NOTE | 2022-11-06 18:09 | NUR ---
SHIFT SUMMARY NO ACUTE CHANGES DURING SHIFT. PT ALERT AND ORIENTED, CALLS APPROPRIATELY. PT MORE ALERT TODAY, WILLING TO PARTICIPATE WITH PHYSICAL THERAPY, RECOMMENDING HOME WITH HOME HEALTH. PT REMAINS ON 1L RESTRICTION. BP REMAINS SOFT, SBP REMAINS IN THE 90'S, CONTINUE MIDODRINE TID. WILL CONTINUE TO MONITOR. CALL LIGHT WITHIN REACH.
--- NOTE | 2022-11-06 22:33 | NUR ---
TELEMETRY CALLED, EXPRESSED CONCERN ABOUT PTS PACEMAKER NOT CAPTURING RIGHT. CALLED THE PROVIDER AND GOT A ORDER FOR THE PACEMAKER TO BE INTERGATED. PCU NURSE UP TO ROOM AT 2222 TO INTERGATE PACEMAKER. [facility] CALL[facility] AND SAID THAT THE PACEMAKER IS FUNCTIONING GREAT, THE WIRES ARE GOOD AND THERE ARE NO CONCERNS. PER [employer], THE COMPANY TO INTERPRETS THE PACEMAKER INTERGATION RESULTS, THERE ARE NO CONCERNS REGARDING THE PTS PACEMAKER FUNCTION.
--- NOTE | 2022-11-07 04:38 | NUR ---
SHIFT SUMMARY; NO ACUTE CHANGES OVERNIGHT. THE PT IS AXO X4 BUT SEEMS WITHDRAWN. THE PT RESPONDS TO VERBAL STIMULI BUT IS SLOW TO RESPOND. THE PT IS A 1 ASSIST WITH A FWW AND A GAIT BELT TO THE BATHROOM. ENCOURAGED PT TO USE BEDSIDE URINAL DUE TO SOFT B/P BUT THE PT DECLINED. 1000 ML FLUID RESTRICTION MAINTAINED, THE PT DID NOT DRINK ANY FLUID OTHER THAN THE FEW SIPS OF WATER WITH TAKING PILLS. TELE IS IN PLACE, BIVENTRICLE PACED IN THE 60'S. PACEMAKER WAS INTERROGATED LAST NIGHT, PACEMAKER IS FUNCTIONING WELL, NO ISSUES. CURRENTLY THE PT IS RESTING IN BED WITH THE BED IN THE LOWEST PSOITION, BED ALARM IS ON AND THE CALL LIGHT IS AT BEDSIDE.
[2022-11-07 05:36] LABS: BASOPHILS ABSOLUTE AUTO 0.01 K/mm3 (0.00-0.23); BASOPHILS PERCENT AUTO 0 % (0-2); EOSINOPHILS ABSOLUTE AUTO 0.02 K/mm3 (0.00-0.68); EOSINOPHILS PERCENT AUTO 0 % (0-6); Hematocrit 37.8 % (37.0-53.0); Hemoglobin 13.4 g/dL (13.5-17.5); IMMATURE GRAN ABSOLUTE AUTO 0.06 K/mm3 (0.00-0.10); IMMATURE GRAN PERCENT AUTO 1 % (0-1); LYMPHOCYTES ABSOLUTE AUTO 0.78 K/mm3 (0.84-5.20); LYMPHOCYTES PERCENT AUTO 10 % (21-46); MONOCYTES ABSOLUTE AUTO 0.51 K/mm3 (0.16-1.47); MONOCYTES PERCENT AUTO 6 % (4-13); Mean Corpuscular HGB 32.8 pg (26.0-34.0); Mean Corpuscular HGB Conc 35.4 g/dL (31.5-36.5); Mean Corpuscular Volume 93 fL (80-100); NEUTROPHILS ABSOLUTE AUTO 6.53 K/mm3 (1.96-9.15); NEUTROPHILS PERCENT AUTO 83 % (41-73); Platelet Count 87 K/mm3 (150-400); RDW Coefficient Variation 16.7 % (11.7-14.2); RDW Standard Deviation 55.8 fL (35.1-46.3); Red Blood Cell Count 4.08 M/mm3 (4.30-5.90); White Blood Cell Count 7.91 K/mm3 (4.00-11.30)
[2022-11-07 05:53] LABS: Albumin, Blood 1.9 g/dL (3.4-5.0); Albumin/Globulin Ratio 0.6 (0.8-1.8); Bilirubin, Total 2.3 mg/dL (0.1-1.0); Bun/Creatinine Ratio 62.2 (12.0-20.0); Calcium, Blood 8.3 mg/dL (8.5-10.1); Creatinine, Blood 1.27 mg/dL (0.60-1.20); Globulin, Blood 3.1 g/dL (2.2-4.0); Magnesium, Blood 2.6 mg/dL (1.6-2.4); Phosphorus, Blood 2.9 mg/dL (2.5-4.9); Potassium, Blood 3.4 mmol/L (3.5-5.5)
[2022-11-07] MEDS ORDERED: ACET325 PO (13:44)
[2022-11-07] MEDS ORDERED: CARV3.125 PO (13:45)
[2022-11-07] MEDS ORDERED: AMOCLA875 PO (13:45)
[2022-11-07] MEDS ORDERED: MIDO5 PO (13:46)
[2022-11-07] MEDS ORDERED: DOXY100 PO (13:46)
[2022-11-07] MEDS ORDERED: MIRALAX17 GM PO (13:48)
[2022-11-07] MEDS ORDERED: PANT40 PO (13:48)
[2022-11-07] MEDS ORDERED: LACT PO (13:51)
== END 2022-11-07 16:31 | disposition hospice, home (50) | DRG 871 ==
LOC: ER 12:51 → PCU 15:22 → MEDS 11-05 15:58
PROVIDERS: Internal Medicine Nephrology; Student in an Organized Health Care Education/Training Program; ADMIT Internal Medicine
PROC: 3E03329 Introduction of Other Anti-infective into Peripheral Vein, Percutaneous Approach (ICD-10-PCS; principal; 2022-11-01)
PROC: 5A0935A Assistance with Respiratory Ventilation, Less than 24 Consecutive Hours, High Flow/Velocity Cannula (ICD-10-PCS; 2022-11-01)
PROC: 5A09357 Assistance with Respiratory Ventilation, Less than 24 Consecutive Hours, Continuous Positive Airway Pressure (ICD-10-PCS; 2022-11-01)
PROC: 4A133R1 Monitoring of Arterial Saturation, Peripheral, Percutaneous Approach (ICD-10-PCS; 2022-11-01)
PROC: 0T9B70Z Drainage of Bladder with Drainage Device, Via Natural or Artificial Opening (ICD-10-PCS; 2022-11-02)
DX: A41.9 Sepsis, unspecified organism (principal); I50.23 Acute on chronic systolic (congestive) heart failure; J96.01 Acute respiratory failure with hypoxia; J18.9 Pneumonia, unspecified organism; I13.0 Hypertensive heart and chronic kidney disease with heart failure and stage 1 through stage 4 chronic kidney disease, or unspecified chronic kidney disease; N17.9 Acute kidney failure, unspecified; E87.1 Hypo-osmolality and hyponatremia; N25.81 Secondary hyperparathyroidism of renal origin; I42.9 Cardiomyopathy, unspecified; I48.19 Other persistent atrial fibrillation; E87.4 Mixed disorder of acid-base balance; Z66 Do not resuscitate; Z51.5 Encounter for palliative care; E80.6 Other disorders of bilirubin metabolism; E87.5 Hyperkalemia; R65.20 Severe sepsis without septic shock; N18.30 Chronic kidney disease, stage 3 unspecified; E87.6 Hypokalemia; E83.41 Hypermagnesemia; E88.09 Other disorders of plasma-protein metabolism, not elsewhere classified; D63.1 Anemia in chronic kidney disease; I95.9 Hypotension, unspecified; Z79.899 Other long term (current) drug therapy; Z95.0 Presence of cardiac pacemaker; Z98.890 Other specified postprocedural states; Z79.01 Long term (current) use of anticoagulants; Z79.2 Long term (current) use of antibiotics
CPT/HCPCS: 36415; 51702; 71046; 76770; 80053; 80069; 81001; 82248; 82533; 82803; 83605; 83735; 83880; 84100; 84145; 84156; 84443; 84484; 84550; 85014; 85018; 85025; 87040; 93005; 93010; 94762; 96365; 96375; 97110; 97162; 97166; 97530; 99285-25; A9270; J0696; J1644; J1940